=== PATIENT | male | born 1990 | race African-American/Black ===

== ENCOUNTER 2018-08-02 10:13 | Inpatient (IN) | payer MEDICAID ==
[2018-08-02] MEDS: HYDROCHLOROTHIAZIDE 25 MG TAB PO (11:13)
[2018-08-02] MEDS: SOD CHLORIDE 0.9% 1,000 ML IV (11:13)
[2018-08-02 11:14] LABS: ADD MAN DIFF? NO
[2018-08-02 11:21] LABS: ABNORMAL IP MESSAGE 1; BASOPHILS % 0.6 % (0.0-2.0); EOSINOPHILS # 0.2 10^3/ul (0.0-0.5); EOSINOPHILS % 2.4 % (0.0-7.0); HEMATOCRIT 19.4 % (42.0-52.0); LYMPHOCYTES # 1.6 10^3/ul (0.8-2.9); LYMPHOCYTES % 21.5 % (15.0-51.0); MEAN CORPUSCULAR HEMOGLOBIN 26.7 pg (29.0-33.0); MEAN CORPUSCULAR VOLUME 78.5 fl (82.0-101.0); MEAN PLATELET VOLUME 9.5 fl (7.4-10.4); MONOCYTE # 0.5 10^3/ul (0.3-0.9); MONOCYTES % 7.2 % (0.0-11.0); NEUTROPHIL # 4.9 10^3/ul (1.6-7.5); PLATELET COUNT 243 10^3/UL (140-415); POSITIVE DIFF @See below; RED BLOOD COUNT 2.47 10^6/ul (4.70-6.10); RED CELL DISTRIBUTION WIDTH 13.2 % (11.5-14.5)
[2018-08-02 11:21] LABS: WHITE BLOOD COUNT 7.2 10^3/ul (4.8-10.8)
[2018-08-02 11:23] LABS: HEMOGLOBIN 6.6 g/dl (14.0-18.0); PATH REVIEW? YES
[2018-08-02 11:40] LABS: ALANINE AMINOTRANSFERASE 11 IU/L (13-69); ALBUMIN 4.5 g/dl (3.3-4.9); ALBUMIN/GLOBULIN RATIO 1.12; ALKALINE PHOSPHATASE 80 IU/L (42-121); ANION GAP 32 (5-13); ASPARTATE AMINO TRANSFERASE 16 IU/L (15-46); CARBON DIOXIDE 15 mmol/L (21-31); CHLORIDE 96 mmol/L (97-110); GLUCOSE 110 mg/dl (70-220); LIPASE 1901 U/L (23-300); POTASSIUM 4.3 mmol/L (3.5-5.1); SODIUM 143 mmol/L (135-144); TOTAL PROTEIN 8.5 g/dl (6.1-8.1)
[2018-08-02 11:57] LABS: FREE T4 (FREE THYROXINE) 1.79 ng/dl (0.79-2.35)
[2018-08-02 11:58] LABS: FREE T3 2.48 pg/ml (2.77-5.27)
[2018-08-02 12:01] LABS: BLOOD UREA NITROGEN 162 mg/dl (7-20); CREATININE 44.63 mg/dl (0.61-1.24); Estimated GFR 1 mL/min (>60)
[2018-08-02 12:03] LABS: CALCIUM 5.3 mg/dl (8.4-10.2)
[2018-08-02 12:04] LABS: TROPONIN-I 0.198 ng/ml (0.000-0.120)
[2018-08-02 12:07] LABS: ANISOCYTOSIS 2+ (0-0); EOSINOPHILS % (M) 4 % (0-7); HYPOCHROMASIA 3+ (0-0); LYMPHOCYTES % (M) 29 % (15-51); MICROCYTOSIS 2+ (0-0); MONOCYTE #M 0.1 10^3/ul (0.3-0.9); MONOCYTES % (M) 2 % (0-11); PLATELET ESTIMATE NORMAL; POLYCHROMASIA 3+ (0-0); SEGMENTED NEUTROPHILS (M) % 65 % (39-77); SMUDGE%M 2 % (0-0)
[2018-08-02] MEDS: CA CHLORIDE 10% 10 ML SYRINGE IV (12:26)
[2018-08-02] MEDS: MAGNESIUM SULFATE 2 GM/50 ML 50 ML IVPB (12:36)
[2018-08-02] MEDS ORDERED: CLONIDINE 0.3 MG/24 HR PATCH TRANSDERM (13:30)
[2018-08-02] MEDS ORDERED: DEXTROSE 5% 1,000 ML IV (13:30)
[2018-08-02] MEDS ORDERED: BISACODYL 10 MG SUPP PR (13:30)
[2018-08-02] MEDS ORDERED: NACL 0.9% 3 ML SYG IV (13:30)
[2018-08-02] MEDS ORDERED: ONDANSETRON 4 MG INJ IV (13:30)
[2018-08-02] MEDS: SODIUM CHLORIDE 0.9% 1L BAG IV (13:30)
[2018-08-02] MEDS ORDERED: hydrALAzine 20 MG INJ IV (13:30)
[2018-08-02] MEDS ORDERED: NIFEdipine (XL) 60 MG TAB PO (13:30)
[2018-08-02] MEDS: LIDOCAINE 2% JELLY 5 ML TOP (13:35)
[2018-08-02 13:37] LABS: HEMATOCRIT 17.5 % (42.0-52.0)
[2018-08-02 13:51] LABS: HEMOGLOBIN 5.9 g/dl (14.0-18.0)
[2018-08-02 13:52] LABS: PROTIME 15.3 Sec (11.9-14.9); PT RATIO 1.2
[2018-08-02 13:55] LABS: ADD UMIC YES; UR AMORPHOUS CRYSTAL FEW /HPF (NONE SEEN); UR ASCORBIC ACID NEGATIVE (NEGATIVE); UR BACTERIA FEW /HPF (NONE SEEN); UR BILIRUBIN (Dip) NEGATIVE (NEGATIVE); UR BLOOD (Dip) 1+ mg/dL (NEGATIVE); UR CLARITY CLEAR (CLEAR); UR COLOR STRAW (YELLOW); UR GLUCOSE (Dip) NEGATIVE (NEGATIVE); UR KETONES (Dip) NEGATIVE (NEGATIVE); UR LEUKOCYTE ESTERASE (Dip) NEGATIVE Leu/ul (NEGATIVE); UR NITRITE (Dip) NEGATIVE (NEGATIVE); UR RBC 2 /HPF (0-5); UR SPECIFIC GRAVITY (Dip) 1.013 (1.003-1.030); UR TOTAL PROTEIN (Dip) 3+ mg/dl (NEGATIVE); UR UROBILINOGEN (Dip) NEGATIVE (NEGATIVE); UR WBC 7 /HPF (0-5)
[2018-08-02 13:57] LABS: SODIUM,URINE RANDOM 49 mmol/L (30-90)
[2018-08-02 13:57] LABS: CREATININE,URINE RANDOM 155.81 mg/dl (20-370)
[2018-08-02 14:00] LABS: AMPHETAMINE/METHAMPHETAMINE Negative (NEGATIVE); BARBITURATES Negative (NEGATIVE); BENZODIAZEPINES Negative (NEGATIVE); CANNABINOIDS Negative (NEGATIVE); COCAINE Negative (NEGATIVE); OPIATES Positive (NEGATIVE)
[2018-08-02 14:03] LABS: LACTATE DEHYDROGENASE 988 IU/L (313-618)
[2018-08-02 14:04] LABS: URIC ACID 14.1 mg/dl (3.1-7.9)
[2018-08-02 14:04] LABS: CREATINE KINASE 1256 IU/L (23-200)
[2018-08-02 14:34] LABS: CREATININE 43.25 mg/dl (0.61-1.24)
[2018-08-02 14:48] LABS: AADO2 Arterial 29.5 mmHg (7.0-24.0); Allen Test ACCEPTAB; Arterial Base Excess -10.3 mmol/L (-3.0-3); Arterial Blood Gas Oxygen Sat 98.3 mmHG (95.0-98.0); Arterial COHb 0.3 % (0.0-3.0); Arterial Fraction of Oxyhgb 97.3 % (93.0-99.0); Arterial HCO3 11.9 mmol/L (22.0-26.0); Arterial MetHb 0.7 % (0.0-1.5); Arterial pCO2 15.9 mmhg (35-45); MODE NASAL CANNULA; Site Left Radial
[2018-08-02] MEDS ORDERED: SODIUM CHLORIDE 0.9% 1L BAG IV (15:00)
[2018-08-02] MEDS ORDERED: MANNITOL 25% 50 ML IV (16:00)
[2018-08-02] MEDS: LABETALOL 100 MG TAB PO ×2 (16:07→23:55)
[2018-08-02] MEDS: NIFEdipine (XL) 90 MG TAB PO (17:06)
[2018-08-02] MEDS: CLONIDINE 0.3 MG/24 HR PATCH TRANSDERM (17:07)
[2018-08-02] MEDS: SODIUM BICARBONATE (IV ADD) 150 MEQ in DEXTROSE 5% 1,000 ML IV (17:08)
[2018-08-02 17:24] LABS: ANION GAP 29 (5-13); CALCIUM 6.6 mg/dl (8.4-10.2); CARBON DIOXIDE 14 mmol/L (21-31); CHLORIDE 99 mmol/L (97-110); GLUCOSE 79 mg/dl (70-220); POTASSIUM 3.9 mmol/L (3.5-5.1); SODIUM 142 mmol/L (135-144)
[2018-08-02 17:46] LABS: BLOOD UREA NITROGEN 165 mg/dl (7-20)
[2018-08-02] MEDS: LIDOCAINE 1% (MPF) 5 ML VIAL (18:37)
[2018-08-02 18:51] LABS: CREATININE 43.87 mg/dl (0.61-1.24); Estimated GFR 1 mL/min (>60)
[2018-08-02 20:26] LABS: HEPATITIS B SURFACE ANTIGEN NEGATIVE (NEGATIVE)
[2018-08-02 20:46] LABS: TROPONIN-I 0.221 ng/ml (0.000-0.120)
[2018-08-02 21:52] LABS: IMMEDIATE SPIN CROSSMATCH 1 2
[2018-08-02] MEDS: HEPARIN 1000 UNITS/ML 10 ML INJ CATHETER (22:42)
[2018-08-03] MEDS: SODIUM BICARBONATE (IV ADD) 150 MEQ in DEXTROSE 5% 1,000 ML IV ×2 (00:30→08:13)
[2018-08-03] MEDS: CALCIUM GLUCONATE 10% 2 GM in DEXTROSE 5% 100 ML IVPB (01:40)
[2018-08-03 05:36] LABS: ADD MAN DIFF? NO
[2018-08-03 05:46] LABS: WHITE BLOOD COUNT 6.7 10^3/ul (4.8-10.8)
[2018-08-03 05:46] LABS: BASOPHILS % 0.3 % (0.0-2.0); EOSINOPHILS # 0.1 10^3/ul (0.0-0.5); EOSINOPHILS % 1.5 % (0.0-7.0); HEMATOCRIT 20.5 % (42.0-52.0); HEMOGLOBIN 7.1 g/dl (14.0-18.0); LYMPHOCYTES # 1.6 10^3/ul (0.8-2.9); MEAN CORPUSCULAR HEMOGLOBIN 28.1 pg (29.0-33.0); MEAN CORPUSCULAR HGB CONC 34.6 g/dl (32.0-37.0); MEAN PLATELET VOLUME 10.1 fl (7.4-10.4); MONOCYTE # 0.6 10^3/ul (0.3-0.9); MONOCYTES % 9.4 % (0.0-11.0); NEUTROPHIL # 4.3 10^3/ul (1.6-7.5); NEUTROPHILS % 64.5 % (39.0-77.0); PLATELET COUNT 181 10^3/UL (140-415); RED BLOOD COUNT 2.53 10^6/ul (4.70-6.10); RED CELL DISTRIBUTION WIDTH 13.2 % (11.5-14.5)
[2018-08-03 05:57] LABS: CREATINE KINASE 1050 IU/L (23-200)
[2018-08-03 06:32] LABS: BLOOD UREA NITROGEN 119 mg/dl (7-20); CREATININE 34.47 mg/dl (0.61-1.24); Estimated GFR 2 mL/min (>60)
[2018-08-03] MEDS: PANTOPRAZOLE (EC) 40 MG TAB PO (06:48)
[2018-08-03 06:58] LABS: ALANINE AMINOTRANSFERASE 17 IU/L (13-69); ALBUMIN 3.8 g/dl (3.3-4.9); ALBUMIN/GLOBULIN RATIO 1.11; ALKALINE PHOSPHATASE 65 IU/L (42-121); ANION GAP 19 (5-13); ASPARTATE AMINO TRANSFERASE 19 IU/L (15-46); BILIRUBIN,INDIRECT 0.1 mg/dl (0-1.1); BILIRUBIN,TOTAL 0.1 mg/dl (0.2-1.3); CARBON DIOXIDE 23 mmol/L (21-31); CHLORIDE 98 mmol/L (97-110); GLUCOSE 145 mg/dl (70-220); MAGNESIUM 2.1 mg/dl (1.7-2.5); POTASSIUM 3.6 mmol/L (3.5-5.1); SODIUM 140 mmol/L (135-144); TOTAL PROTEIN 7.2 g/dl (6.1-8.1)
[2018-08-03] MEDS: LABETALOL 100 MG TAB PO ×4 (09:00→23:32)
[2018-08-03] MEDS: NIFEdipine (XL) 90 MG TAB PO (09:00)
[2018-08-03] MEDS: ACETAMINOPHEN 325 MG TAB PO (09:51)
[2018-08-03] MEDS: ALLOPURINOL 100 MG TAB PO ×3 (09:52→23:32)
[2018-08-03] MEDS ORDERED: DOCUSATE SODIUM 100 MG CAP PO (13:00)
[2018-08-03] MEDS: HEPARIN 1000 UNITS/ML 10 ML INJ CATHETER (21:23)
[2018-08-04 05:15] LABS: HAAIG REFLEX REFLEX FILED
[2018-08-04] MEDS: PANTOPRAZOLE (EC) 40 MG TAB PO (06:09)
[2018-08-04] MEDS: HYDROCODONE/APAP (5/325) TAB PO ×2 (06:10→20:40)
[2018-08-04 06:24] LABS: HEPATITIS B SURFACE ANTIGEN NEGATIVE (NEGATIVE)
[2018-08-04] MEDS: DOCUSATE SODIUM 100 MG CAP PO (06:29)
[2018-08-04 06:41] LABS: HEPATITIS B CORE ANTIBODY NEGATIVE (NEGATIVE); HEPATITIS C VIRAL ANTIBODY NEGATIVE (NEGATIVE); HIV 1&2 ANTIBODY NEGATIVE (NEGATIVE)
[2018-08-04] MEDS: NIFEdipine (XL) 90 MG TAB PO (08:46)
[2018-08-04] MEDS: ALLOPURINOL 100 MG TAB PO ×2 (08:46→22:14)
[2018-08-04] MEDS: LABETALOL 100 MG TAB PO ×3 (08:46→20:05)
[2018-08-04] MEDS: ENOXAPARIN 30 MG/0.3 ML SYG SC (08:51)
[2018-08-04 10:23] LABS: IRON 75 ug/dl (35-150)
[2018-08-04 10:33] LABS: % IRON SATURATION 36 % SAT (22-52); TOTAL IRON BINDING CAPACITY 206 ug/dl (241-421)
[2018-08-04 11:15] LABS: CHOL/HDL RATIO 8.8 RATIO; HDL CHOLESTEROL 24 mg/dl (30-63); LDL CHOLESTEROL,CALCULATED 140 mg/dl; TRIGLYCERIDES 243 mg/dl (0-149)
[2018-08-04 11:15] LABS: CHOLESTEROL 213 mg/dl (100-200)
[2018-08-04] MEDS: BISACODYL (EC) 5 MG TAB PO (11:51)
[2018-08-04 12:10] LABS: ADD MAN DIFF? NO
[2018-08-04 12:16] LABS: WHITE BLOOD COUNT 6.7 10^3/ul (4.8-10.8)
[2018-08-04 12:16] LABS: BASOPHILS % 0.6 % (0.0-2.0); EOSINOPHILS # 0.1 10^3/ul (0.0-0.5); EOSINOPHILS % 2.1 % (0.0-7.0); HEMATOCRIT 22.5 % (42.0-52.0); HEMOGLOBIN 7.4 g/dl (14.0-18.0); LYMPHOCYTES # 1.9 10^3/ul (0.8-2.9); LYMPHOCYTES % 29.2 % (15.0-51.0); MEAN CORPUSCULAR HEMOGLOBIN 27.3 pg (29.0-33.0); MEAN CORPUSCULAR HGB CONC 32.9 g/dl (32.0-37.0); MEAN PLATELET VOLUME 10.1 fl (7.4-10.4); MONOCYTE # 0.8 10^3/ul (0.3-0.9); MONOCYTES % 11.6 % (0.0-11.0); NEUTROPHIL # 3.7 10^3/ul (1.6-7.5); NEUTROPHILS % 56.2 % (39.0-77.0); PLATELET COUNT 180 10^3/UL (140-415); RED BLOOD COUNT 2.71 10^6/ul (4.70-6.10); RED CELL DISTRIBUTION WIDTH 13.5 % (11.5-14.5)
[2018-08-04 12:48] LABS: ANION GAP 12 (5-13); BLOOD UREA NITROGEN 76 mg/dl (7-20); CALCIUM 6.9 mg/dl (8.4-10.2); CARBON DIOXIDE 28 mmol/L (21-31); CHLORIDE 97 mmol/L (97-110); GLUCOSE 102 mg/dl (70-220); POTASSIUM 3.8 mmol/L (3.5-5.1); SODIUM 137 mmol/L (135-144)
[2018-08-04 12:58] LABS: CREATININE 21.45 mg/dl (0.61-1.24); Estimated GFR 3 mL/min (>60)
[2018-08-04] MEDS ORDERED: EPOETIN 4000 UNITS/1 ML INJ (ESRD) SC (17:00)
[2018-08-04] MEDS: ALBUMIN HUMAN 25% 100 ML IV (19:04)
[2018-08-04] MEDS: ALTEPLASE (CATHFLO) 2 MG INJ CATHETER (21:16)
[2018-08-04] MEDS: EPOETIN 4000 UNITS/1 ML INJ (ESRD) SC (22:16)
[2018-08-05] MEDS: HYDROCODONE/APAP (5/325) TAB PO ×2 (02:43→09:04)
[2018-08-05] MEDS: ACETAMINOPHEN 325 MG TAB PO (04:24)
[2018-08-05] MEDS: PANTOPRAZOLE (EC) 40 MG TAB PO (05:37)
[2018-08-05 05:52] LABS: ADD MAN DIFF? NO
[2018-08-05 05:57] LABS: BASOPHILS % 0.5 % (0.0-2.0); EOSINOPHILS # 0.2 10^3/ul (0.0-0.5); HEMATOCRIT 21.6 % (42.0-52.0); LYMPHOCYTES # 1.7 10^3/ul (0.8-2.9); LYMPHOCYTES % 26.2 % (15.0-51.0); MEAN CORPUSCULAR HEMOGLOBIN 27.3 pg (29.0-33.0); MEAN CORPUSCULAR HGB CONC 32.4 g/dl (32.0-37.0); MEAN CORPUSCULAR VOLUME 84.4 fl (82.0-101.0); MONOCYTE # 0.7 10^3/ul (0.3-0.9); MONOCYTES % 11.1 % (0.0-11.0); NEUTROPHIL # 3.7 10^3/ul (1.6-7.5); PLATELET COUNT 181 10^3/UL (140-415); RED BLOOD COUNT 2.56 10^6/ul (4.70-6.10); RED CELL DISTRIBUTION WIDTH 13.2 % (11.5-14.5)
[2018-08-05 05:57] LABS: WHITE BLOOD COUNT 6.3 10^3/ul (4.8-10.8)
[2018-08-05 06:34] LABS: ANION GAP 14 (5-13); BLOOD UREA NITROGEN 43 mg/dl (7-20); CALCIUM 7.4 mg/dl (8.4-10.2); CARBON DIOXIDE 27 mmol/L (21-31); CHLORIDE 95 mmol/L (97-110); GLUCOSE 126 mg/dl (70-220); SODIUM 136 mmol/L (135-144)
[2018-08-05 06:35] LABS: PHOSPHORUS 5.7 mg/dl (2.5-4.9)
[2018-08-05 06:35] LABS: MAGNESIUM 1.8 mg/dl (1.7-2.5)
[2018-08-05 07:00] LABS: CREATININE 14.87 mg/dl (0.61-1.24); Estimated GFR 5 mL/min (>60)
[2018-08-05] MEDS: ENOXAPARIN 30 MG/0.3 ML SYG SC (09:00)
[2018-08-05] MEDS: ALLOPURINOL 100 MG TAB PO ×2 (09:04→20:46)
[2018-08-05] MEDS: LABETALOL 100 MG TAB PO ×3 (09:05→20:45)
[2018-08-05] MEDS: NIFEdipine (XL) 90 MG TAB PO (09:05)
[2018-08-05 10:18] LABS: HAPTOGLOBIN 318 mg/dL (43-212)
[2018-08-05] MEDS: BISACODYL (EC) 5 MG TAB PO (10:36)
[2018-08-05 22:41] LABS: ALBUMIN 3.8 g/dL (3.8-4.8); ALPHA-1-GLOBULINS 0.3 g/dL (0.2-0.3); BETA 2 GLOBULINS 0.3 g/dL (0.2-0.5); BETA GLOBULINS 0.3 g/dL (0.4-0.6); GAMMA GLOBULINS 1.4 g/dL (0.8-1.7)
[2018-08-06 06:24] LABS: ADD MAN DIFF? NO
[2018-08-06 06:27] LABS: WHITE BLOOD COUNT 7.5 10^3/ul (4.8-10.8)
[2018-08-06 06:27] LABS: BASOPHILS % 0.4 % (0.0-2.0); EOSINOPHILS # 0.2 10^3/ul (0.0-0.5); EOSINOPHILS % 3.1 % (0.0-7.0); HEMATOCRIT 21.8 % (42.0-52.0); HEMOGLOBIN 7.1 g/dl (14.0-18.0); LYMPHOCYTES # 2.2 10^3/ul (0.8-2.9); MEAN CORPUSCULAR HEMOGLOBIN 27.6 pg (29.0-33.0); MEAN CORPUSCULAR HGB CONC 32.6 g/dl (32.0-37.0); MEAN CORPUSCULAR VOLUME 84.8 fl (82.0-101.0); MEAN PLATELET VOLUME 10.1 fl (7.4-10.4); MONOCYTE # 0.8 10^3/ul (0.3-0.9); MONOCYTES % 10.4 % (0.0-11.0); NEUTROPHIL # 4.2 10^3/ul (1.6-7.5); NEUTROPHILS % 56.7 % (39.0-77.0); PLATELET COUNT 192 10^3/UL (140-415); RED BLOOD COUNT 2.57 10^6/ul (4.70-6.10); RED CELL DISTRIBUTION WIDTH 13.3 % (11.5-14.5)
[2018-08-06 06:49] LABS: ANION GAP 14 (5-13); BLOOD UREA NITROGEN 53 mg/dl (7-20); CALCIUM 7.2 mg/dl (8.4-10.2); CARBON DIOXIDE 24 mmol/L (21-31); CHLORIDE 98 mmol/L (97-110); GLUCOSE 94 mg/dl (70-220); POTASSIUM 4.1 mmol/L (3.5-5.1); SODIUM 136 mmol/L (135-144)
[2018-08-06 06:58] LABS: CREATININE 17.32 mg/dl (0.61-1.24); Estimated GFR 4 mL/min (>60)
[2018-08-06] MEDS: PANTOPRAZOLE (EC) 40 MG TAB PO (07:20)
[2018-08-06 07:22] LABS: MAGNESIUM 1.7 mg/dl (1.7-2.5)
[2018-08-06 07:22] LABS: PHOSPHORUS 7.7 mg/dl (2.5-4.9)
[2018-08-06 07:46] LABS: CREATININE,URINE RANDOM 72.48 mg/dl (20-370)
[2018-08-06 07:52] LABS: COLLECTION PERIOD 24 hrs; CREATININE CLEARANCE 1.6 mls/min (84.0-162.0); SCRET 17.32 mg/dl (0.61-1.24); VOLUME 550 ml/24hrs
[2018-08-06] MEDS: LABETALOL 100 MG TAB PO ×3 (09:17→20:14)
[2018-08-06] MEDS: ALLOPURINOL 100 MG TAB PO ×2 (09:17→20:15)
[2018-08-06] MEDS: NIFEdipine (XL) 90 MG TAB PO (09:17)
[2018-08-06] MEDS: ENOXAPARIN 30 MG/0.3 ML SYG SC (09:22)
[2018-08-06 11:44] LABS: COLLECTION PERIOD 24 hrs
[2018-08-06 12:03] LABS: VOLUME 550 mls
[2018-08-06 12:04] LABS: 24HR URINE TOTAL PROTEIN > 600.0 mg/24hrs (42.0-225.0)
[2018-08-06] MEDS: EPOETIN 4000 UNITS/1 ML INJ (ESRD) SC (18:31)
[2018-08-06] MEDS: HEPARIN 1000 UNITS/ML 10 ML INJ CATHETER (18:37)
[2018-08-07] MEDS: PANTOPRAZOLE (EC) 40 MG TAB PO (05:30)
[2018-08-07] MEDS: HYDROCODONE/APAP (5/325) TAB PO (05:54)
[2018-08-07 06:12] LABS: ADD MAN DIFF? NO
[2018-08-07 06:17] LABS: BASOPHILS % 0.3 % (0.0-2.0); EOSINOPHILS # 0.2 10^3/ul (0.0-0.5); EOSINOPHILS % 2.8 % (0.0-7.0); HEMATOCRIT 23.2 % (42.0-52.0); HEMOGLOBIN 7.4 g/dl (14.0-18.0); LYMPHOCYTES # 1.7 10^3/ul (0.8-2.9); LYMPHOCYTES % 25.5 % (15.0-51.0); MEAN CORPUSCULAR HEMOGLOBIN 27.5 pg (29.0-33.0); MEAN CORPUSCULAR HGB CONC 31.9 g/dl (32.0-37.0); MEAN CORPUSCULAR VOLUME 86.2 fl (82.0-101.0); MEAN PLATELET VOLUME 10.6 fl (7.4-10.4); MONOCYTE # 0.8 10^3/ul (0.3-0.9); MONOCYTES % 12.5 % (0.0-11.0); NEUTROPHIL # 3.9 10^3/ul (1.6-7.5); NEUTROPHILS % 58.5 % (39.0-77.0); PLATELET COUNT 220 10^3/UL (140-415); RED BLOOD COUNT 2.69 10^6/ul (4.70-6.10); RED CELL DISTRIBUTION WIDTH 13.4 % (11.5-14.5)
[2018-08-07 06:17] LABS: WHITE BLOOD COUNT 6.7 10^3/ul (4.8-10.8)
[2018-08-07 07:03] LABS: ANION GAP 12 (5-13); BLOOD UREA NITROGEN 37 mg/dl (7-20); CALCIUM 7.7 mg/dl (8.4-10.2); CARBON DIOXIDE 24 mmol/L (21-31); CHLORIDE 103 mmol/L (97-110); CREATININE 13.09 mg/dl (0.61-1.24); Estimated GFR 6 mL/min (>60); GLUCOSE 99 mg/dl (70-220); POTASSIUM 4.6 mmol/L (3.5-5.1); SODIUM 139 mmol/L (135-144)
[2018-08-07 07:07] LABS: PHOSPHORUS 6.4 mg/dl (2.5-4.9)
[2018-08-07] MEDS: NIFEdipine (XL) 90 MG TAB PO (08:38)
[2018-08-07] MEDS: LABETALOL 100 MG TAB PO ×3 (08:38→22:38)
[2018-08-07] MEDS: ALLOPURINOL 100 MG TAB PO ×2 (08:38→22:38)
[2018-08-07] MEDS: ENOXAPARIN 30 MG/0.3 ML SYG SC (08:42)
[2018-08-07] MEDS: ACETAMINOPHEN 325 MG TAB PO (09:05)
[2018-08-08] MEDS: PANTOPRAZOLE (EC) 40 MG TAB PO (05:59)
[2018-08-08 06:01] LABS: ADD MAN DIFF? NO
[2018-08-08 06:06] LABS: BASOPHILS % 0.5 % (0.0-2.0); EOSINOPHILS # 0.2 10^3/ul (0.0-0.5); EOSINOPHILS % 2.7 % (0.0-7.0); HEMATOCRIT 24.1 % (42.0-52.0); HEMOGLOBIN 7.7 g/dl (14.0-18.0); LYMPHOCYTES # 1.8 10^3/ul (0.8-2.9); LYMPHOCYTES % 24.9 % (15.0-51.0); MEAN CORPUSCULAR HEMOGLOBIN 27.6 pg (29.0-33.0); MEAN CORPUSCULAR VOLUME 86.4 fl (82.0-101.0); MEAN PLATELET VOLUME 9.9 fl (7.4-10.4); MONOCYTE # 0.9 10^3/ul (0.3-0.9); MONOCYTES % 11.6 % (0.0-11.0); NEUTROPHIL # 4.4 10^3/ul (1.6-7.5); NEUTROPHILS % 59.9 % (39.0-77.0); PLATELET COUNT 240 10^3/UL (140-415); RED BLOOD COUNT 2.79 10^6/ul (4.70-6.10); RED CELL DISTRIBUTION WIDTH 13.5 % (11.5-14.5)
[2018-08-08 06:06] LABS: WHITE BLOOD COUNT 7.3 10^3/ul (4.8-10.8)
[2018-08-08 06:25] LABS: INR 1.02; PROTIME 13.5 Sec (11.9-14.9); PT RATIO 1.1
[2018-08-08 06:26] LABS: PARTIAL THROMBOPLASTIN TIME 34.9 Sec (23.0-35.0)
[2018-08-08 06:29] LABS: ANION GAP 17 (5-13); BLOOD UREA NITROGEN 44 mg/dl (7-20); CALCIUM 7.9 mg/dl (8.4-10.2); CARBON DIOXIDE 23 mmol/L (21-31); CHLORIDE 103 mmol/L (97-110); GLUCOSE 92 mg/dl (70-220); POTASSIUM 4.6 mmol/L (3.5-5.1); SODIUM 143 mmol/L (135-144)
[2018-08-08 06:53] LABS: CREATININE 16.04 mg/dl (0.61-1.24); Estimated GFR 4 mL/min (>60)
[2018-08-08 07:10] LABS: MAGNESIUM 2.1 mg/dl (1.7-2.5)
[2018-08-08 07:10] LABS: PHOSPHORUS 7.4 mg/dl (2.5-4.9)
[2018-08-08] MEDS: LABETALOL 100 MG TAB PO ×3 (09:00→22:32)
[2018-08-08] MEDS: NIFEdipine (XL) 90 MG TAB PO (09:00)
[2018-08-08] MEDS ORDERED: FENTAnyl 50 MCG/ML VIAL (09:17)
[2018-08-08] MEDS ORDERED: LIDOCAINE 1% (MDV) 20 ML INJ (09:17)
[2018-08-08] MEDS ORDERED: MIDAZOLAM 1 MG/ML 2 ML INJ (09:17)
[2018-08-08] MEDS ORDERED: HEPARIN 1000 UNITS/ML 10 ML INJ (09:17)
[2018-08-08] MEDS: ALLOPURINOL 100 MG TAB PO ×2 (11:55→22:31)
[2018-08-08] MEDS: ENOXAPARIN 30 MG/0.3 ML SYG SC (11:55)
[2018-08-08] MEDS: EPOETIN 4000 UNITS/1 ML INJ (ESRD) SC (17:45)
[2018-08-08] MEDS: HEPARIN 1000 UNITS/ML 10 ML INJ CATHETER (22:19)
[2018-08-08] MEDS: HYDROCODONE/APAP (5/325) TAB PO (23:21)
[2018-08-09] MEDS: PANTOPRAZOLE (EC) 40 MG TAB PO (05:47)
[2018-08-09] MEDS: HYDROCODONE/APAP (5/325) TAB PO (05:47)
[2018-08-09] MEDS: NIFEdipine (XL) 90 MG TAB PO (10:26)
[2018-08-09] MEDS: ALLOPURINOL 100 MG TAB PO (10:26)
[2018-08-09] MEDS: ENOXAPARIN 30 MG/0.3 ML SYG SC (10:26)
[2018-08-09] MEDS: LABETALOL 100 MG TAB PO ×2 (10:27→13:00)
== END 2018-08-09 13:30 | disposition home or self-care (01) | DRG 674 ==
LOC: 6WM 08-03 18:05 → E/R 10:13 → 2NE 08-07 18:40 → ICU 12:54 → 2NE 08-07 21:49 → ICU 15:25
PROC: 02H633Z Insertion of Infusion Device into Right Atrium, Percutaneous Approach (ICD-10-PCS; principal; 2018-08-08 08:57)
PROC: 0JH63XZ Insertion of Tunneled Vascular Access Device into Chest Subcutaneous Tissue and Fascia, Percutaneous Approach (ICD-10-PCS; 2018-08-08 08:57)
PROC: 5A1D70Z Performance of Urinary Filtration, Intermittent, Less than 6 Hours Per Day (ICD-10-PCS; 2018-08-08 08:57)
PROC: 02PA33Z Removal of Infusion Device from Heart, Percutaneous Approach (ICD-10-PCS; 2018-08-08 08:57)
PROC: 02H633Z Insertion of Infusion Device into Right Atrium, Percutaneous Approach (ICD-10-PCS; 2018-08-08 08:57)
DX: N17.9 Acute kidney failure, unspecified (principal); E87.2 Acidosis; I24.8 Other forms of acute ischemic heart disease; G93.49 Other encephalopathy; Z68.35 Body mass index [BMI] 35.0-35.9, adult; I16.0 Hypertensive urgency; I12.9 Hypertensive chronic kidney disease with stage 1 through stage 4 chronic kidney disease, or unspecified chronic kidney disease; N18.9 Chronic kidney disease, unspecified; E79.0 Hyperuricemia without signs of inflammatory arthritis and tophaceous disease; R73.03 Prediabetes; E78.5 Hyperlipidemia, unspecified; D63.1 Anemia in chronic kidney disease; R33.9 Retention of urine, unspecified; Z71.3 Dietary counseling and surveillance; E66.01 Morbid (severe) obesity due to excess calories; E83.51 Hypocalcemia
CPT/HCPCS: 36415; 36430; 36556; 36600; 71045; 74176; 76775; 76942; 80048; 80053; 80061; 80307; 81001; 82550; 82565; 82570; 82575; 82728; 82803; 82962; 83010; 83036; 83540; 83615; 83690; 83735; 84100; 84155; 84156; 84165; 84166; 84300; 84439; 84443; 84481; 84484; 84560; 85014; 85018; 85025; 85610; 85730; 86703; 86704; 86709; 86803; 86850; 86900; 86901; 86920; 87081; 87086; 87340; 89190; 90935; 93005; 93306; 96374; 96375; 99291-25